=== PATIENT | male | born 1985 | race Two or more races ===

== ENCOUNTER 2025-01-30 18:40 | Emergency (ER) | payer MEDICAID ==
[~2025-01-30] VITALS: Ht 172.7 cm; Wt 83.9 kg
--- NOTE | 2025-01-30 19:32 | DVH ---
CLINICAL INDICATION: possible fb right index finger TECHNIQUE: 3 radiographic views of the right hand were obtained. Comparison: None FINDINGS/IMPRESSION: There are no fractures or dislocations. There are no radiopaque foreign bodies.
--- NOTE | 2025-01-30 20:13 | ED.PDOC ---
History of Present Illness(SKN HPI Comments Pt presents to the ER with C/O right index finger pain. Pt states he was cutting a palm tree and a thorn from tree got stuck in the top of his index finger. Pt noted to have swelling and bruising to site. CSM intact. Chief Complaint: Upper Extremity Time Seen by MD: 18:54 History of Present Illness: Nurses Notes, Medications, Allergies Allergies: Coded Allergies: No Known Drug Allergy (Verified Allergy, Unknown, 01/30/25) Home Meds Active Scripts Ibuprofen (Ibuprofen) 600 Mg Tab, 1 TAB PO TID PRN for 5 Days, #15 TAB Prov:ELENA ULLOA INJECTION SPECIALIST 01/30/25 Amoxicillin & Pot Clavulanate (AUGMENTIN TABLET) 875 Mg Tb, 875 MG PO BID for 7 Days, #14 TAB Prov:LAILAELENA INJECTION SPECIALIST 01/30/25 Information Source: Patient Mode of Arrival: Ambulatory All Other Systems: Reviewed and Negative (see hpi) Physical Exam General Appearance: No Apparent Distress, Normal HEENT: Pharynx Normal Neck: Full Range of Motion, Non-Tender Respiratory: Lungs Clear, No Respiratory Distress, Normal Breath Sounds Cardiovascular: No Murmur, Normal Peripheral Pulses, Regular Rate/Rhythm Breast Exam: Deferred Gastrointestinal: Non Tender, Soft Genitalia: Deferred Pelvic: Deferred Rectal: Deferred Extremities: Normal capillary refill, Normal range of motion Musculoskeletal : Apperance: Normal Neurologic: Alert, No Motor Deficits, Normal Affect, Normal Mood, No Sensory Deficits Cerebellar Function: Normal Reflexes: NOT DONE Skin: Dry, Normal Color, Warm, Wounds (Puncture wound proximal top index finger no noted obvious foreign body mild edema no noted drainage strength sensory motion intact cap refill less than 3 seconds) Lymphatic: No Adenopathy Was a procedure done? Was a procedure done?: No Differential Diagnosis (INTG) Differential Diagnosis: Cellulitis, Fracture, Insect Envenomation, Laceration, Puncture Wound Differential Diagnosis: Abscess X-Ray, Labs, Meds, VS Vital Signs Date Time Temp Pulse Resp B/P (MAP) Pulse Ox O2 Delivery O2 Flow Rate FiO2 01/30/25 18:42 98.8 100 14 132/89 65 98.8 X-Ray, Labs, Meds, VS Comment Script trial of antibiotics and NSAID. Advised to take medication as prescribed side effects discussed. Advised to follow up with his PCP in two days, urgent care, or back in the ER for wound re-evaluation. Advised to keep dressing on, and clean change twice daily. Patient was also advised to return to the ER for increasing pain, numbness, weakness, swelling, fever or chills. Patient indicates understanding and agrees with discharge plan of care. Time of 1ST Reevaluation: 19:15 Reevaluation 1ST: Unchanged Time of 2ND Reevaluation: 20:49 Reevaluation 2ND: Improved Patient Education/Counseling: Diagnosis, Treatment, Need For Follow Up Family Education/Counseling: No Family Present SEPSIS Sepsis Screen Date sepsis recognized/suspect: Jan 30, 2025 Time Sepsis recognized/suspect: 1841 Recent Procedure: No On Antibiotic Therapy: No Respiratory Rate >20: No Heart Rate >90: No Temp<36 C (96.8 F) or >38.3 C: No SBP <90 or MAP <65 mmHG: No New Acute Mental Status Change: No Is the patient on CPAP, BIPAP,: No Physician Orders R Hand 3 View Xray (01/30/25 18:55) Vital Signs Date Time Temp Pulse Resp B/P (MAP) Pulse Ox O2 Delivery O2 Flow Rate FiO2 01/30/25 18:42 98.8 100 14 132/89 65 98.8 Departure 1 Departure Time of Disposition: 20:49 Impression: Primary Impression: Infected finger Disposition: 01 HOME / SELF CARE / HOMELESS Condition: Stable e-Prescriptions Ibuprofen (Ibuprofen) 600 Mg Tab 1 TAB PO TID PRN for 5 Days, #15 TAB Prov: ELENA ULLOA 01/30/25 Amoxicillin & Pot Clavulanate (AUGMENTIN TABLET) 875 Mg Tb 875 MG PO BID for 7 Days, #14 TAB Prov: ELENA ULLOA 01/30/25 Discharged With: Self Critical Care Note Critical Care Time?: No Stability Stability form required: No ELENA ULLOA Jan 30, 2025 20:13
[2025-01-30] MEDS ORDERED: IBUP-1454 PO (20:16)
[2025-01-30] MEDS ORDERED: AUG875T PO (20:16)
[2025-01-30] MEDS: TETANUS-DIPTH-ACEL PERTUSSIS 0.5ML SYR Tdap IM ONE (20:56)
[2025-01-30 21:03] VITALS: BP 128/80; PULSE 88; RESP 20; TEMP 98; O2SAT 96
== END 2025-01-30 21:04 | disposition home or self-care (01) ==
LOC: ER 18:44
DX: L08.9 Local infection of the skin and subcutaneous tissue, unspecified (principal); Z79.899 Other long term (current) drug therapy
CPT/HCPCS: 73130; 90471; 90715